=== PATIENT | female | born 1975 ===

== ENCOUNTER → 2018-05-07 | Outpatient (CLI) | payer OTHER ==
--- NOTE | 2018-05-07 11:44 | Diagnostic Imaging Report ---
INDICATION: Approximately 2 month history of generalized pelvic pain. TECHNIQUE: Multiple real time perry scale sonographic images were obtained of the pelvis transabdominally and transvaginally. CORRELATION STUDY: None FINDINGS: UTERUS/ENDOMETRIUM: Uterus measures 9.3 x 8.4 x 5.3 cm. Endometrial thickness is 11 mm. Area of heterogeneity likely reflective of a subserosal fibroid along the right aspect the uterus 4.4 x 3.7 x 4.0 cm. RIGHT OVARY: 2.2 x 2.4 x 2.0 cm, appearing unremarkable. Vascular flow is demonstrated to the right ovary. LEFT OVARY: Not visualized may be owing to position or obscuration by bowel. No significant free pelvic fluid. IMPRESSION: 1. Probable fibroid uterus. 2. Non-visualization of the left ovary, likely obscured by bowel gas. Dictated by: Dictated on workstation # [id number]
== END ==
LOC: RAD 10:00
PROVIDERS: ATTEND Nurse Practitioner Primary Care
DX: N85.2 Hypertrophy of uterus (principal)
CPT/HCPCS: 76830; 76856

== ENCOUNTER 2019-03-21 11:39 | Outpatient (CLI) | payer OTHER ==
[~2019-03-21] VITALS: Ht 154.9 cm; Wt 75.7 kg
[2019-03-21 11:53] VITALS: BP 139/83
[2019-03-21] MEDS ORDERED: PANT40TA3 PO (12:22)
[2019-03-21] MEDS ORDERED: GLIM2TAB PO (12:22)
[2019-03-21] MEDS ORDERED: ATOR40TA70 PO (12:22)
[2019-03-21 12:23] LABS: BASOPHILS % (AUTO) 0 % (0-10); EOSINOPHILS # (AUTO) 0.1 10^3/uL (0.0-0.3); EOSINOPHILS % (AUTO) 1 % (0-10); HEMATOCRIT 40 % (35-52); HEMOGLOBIN 13.2 G/DL (11.5-16.0); LYMPHOCYTES # (AUTO) 2.7 X 10^3 (1.0-4.0); LYMPHOCYTES % (AUTO) 32 % (12-44); MEAN CORPUSCULAR HEMOGLOBIN 28 PG (25-34); MEAN CORPUSCULAR HGB CONC 33 G/DL (32-36); MEAN CORPUSCULAR VOLUME 86 FL (80-99); MEAN PLATELET VOLUME 11.1 FL (7.4-10.4); MONOCYTES # (AUTO) 0.6 X 10^3 (0.0-1.0); MONOCYTES % (AUTO) 7 % (0-12); NEUTROPHILS # (AUTO) 5.1 X 10^3 (1.8-7.8); NEUTROPHILS % (AUTO) 60 % (42-75); PLATELET COUNT 293 10^3/uL (130-400); RED CELL DISTRIBUTION WIDTH 14.3 % (10.0-14.5); WHITE BLOOD COUNT 8.5 10^3/uL (4.3-11.0)
== END 2019-03-21 12:18 | disposition home or self-care (01) ==
LOC: PREOP 11:39
PROVIDERS: ATTEND Obstetrics & Gynecology
DX: Z01.812 Encounter for preprocedural laboratory examination (principal); Z11.2 Encounter for screening for other bacterial diseases; N94.6 Dysmenorrhea, unspecified; N92.1 Excessive and frequent menstruation with irregular cycle; R10.2 Pelvic and perineal pain; N85.2 Hypertrophy of uterus
CPT/HCPCS: 36415; 85025; 86850; 86900; 86901; 87081

== ENCOUNTER 2019-03-28 08:00 | Inpatient (IN) | payer OTHER ==
[~2019-03-28] VITALS: Ht 153.7 cm; Wt 79.4 kg
[~2019-03-28 08:00] MED LIST: ATOR40TA70 PO; GLIM2TAB PO; PANT40TA3 PO
[2019-04-04] VITALS (12 sets, daily range): BP systolic 93–142; BP diastolic 54–92
[2019-04-04] MEDS ORDERED: ceFAZolin 2 GM/50 ML NS 50 ML IV ONE (06:15)
[2019-04-04] MEDS ORDERED: CATHETER FLUSH 10 ML SYR IV PRN (06:30)
[2019-04-04] MEDS ORDERED: MIDAZOLAM 2 MG/2 ML (VERSED) VIAL ONE ×2 (06:50→06:57)
[2019-04-04] MEDS: LACTATED RINGERS 1,000 ML IV PRN ×4 (06:55→09:00)
--- NOTE | 2019-04-04 06:55 | NUR ---
2 mg versed given to patient by Anesthesia Lilo.
[2019-04-04] MEDS ORDERED: ROCURONIUM 10 MG/ML 5 ML SYRINGE IV ONE ×2 (06:56→08:31)
[2019-04-04] MEDS ORDERED: DEXAMETHASONE 10 MG/ML (DECADRON) 1 ML VIAL ONE (06:56)
[2019-04-04] MEDS ORDERED: SEVOFLURANE (ULTANE) 15 ML INHAL SOLN ONE ×3 (06:56→08:47)
[2019-04-04] MEDS ORDERED: proPOfol 200 MG/20 ML (DIPRIVAN) VIAL IV ONE (06:56)
[2019-04-04] MEDS ORDERED: ONDANSETRON 4 MG/2 ML (SDV) Z0FRAN ONE (06:56)
[2019-04-04] MEDS ORDERED: fentaNYL INJECTION 100 MCG/2 ML AMP ONE (06:57)
--- NOTE | 2019-04-04 07:21 | History & Physical-Surgical ---
HPO-Surgical History of Present Illness Chief Complaint: Heavy, painful bleeding which last for weeks. Also, had a pelvic ultrasound which demonstrated uterine fibroids. Diagnosis/Surgical Indication: Uterine Fibroid 2. Menometrorrhagia 3. Dysmenorrhea 4. Pelvic Pain Date of Surgery: Apr 04, 2019 Weight (Pounds): 175 Weight (Ounces): 0.0 Height (Feet): 5 Height (Inches): 0.50 Allergies and Home Medications Allergies Coded Allergies: ibuprofen (Verified Allergy, Unknown, Hives, 03/21/19) Home Medications Atorvastatin Calcium 40 Mg Tablet, 40 MG PO DAILY, (Reported) Glimepiride 2 Mg Tablet, 2 MG PO BID, (Reported) Pantoprazole Sodium 40 Mg Tablet.dr, 40 MG PO DAILY, (Reported) Patient Home Medication List Home Medication List Reviewed: Yes Past Nuolufo-Darllo-Pmhavu Hx Patient Social History Marrital Status: Alcohol Use: Denies Use Recreational Drug Use: No Physical Abuse Screen: No Sexual Abuse: No Recent Foreign Travel: No Contact w/other who traveled: No Recent Hopitalizations: No Recent Infectious Disease Expo: No Immunizations Up To Date Pediatric: No Seasonal Allergies Seasonal Allergies: No Surgeries Yes (c/s x3, tubal with last c/s) Respiratory No Currently Using CPAP: No Cardiovascular No Neurological No Reproductive System : No Female Reproductive Disorders: Menstrual Problems Genitourinary No Gastrointestinal Yes Gastroesophageal Reflux Musculoskeletal No Endocrine History of Endocrine Disorders: Yes HEENT History of HEENT Disorders: No Cancer No Psychosocial History of Psychiatric Problem: No Integumentary History of Skin or Integumenta: No Blood Transfusions History of Blood Disorders: Yes (anemia) Family Medical History Family Hx: Diabetes mellitus 19 FATHER G8 SISTER Hypertension 19 MOTHER Exam Vital Signs Vital Signs Capillary Refill : Labs Laboratory Tests Test 04/04/19 06:28 Range/Units Glucometer 165 H 70-110 MG/DL General Appearance: Alert, Oriented X3, Cooperative HEENT: PERRLA, EOMI Respiratory: Clear to Auscultation, Normal Air Movement Cardiovascular: Regular Rate, No Murmurs Abdominal: Normal Bowel Sounds, Soft, No Tenderness Extremities: No Clubbing, No Cyanosis, No Edema Skin: No Rashes Neuro: Normal Gait, Normal Speech, Cranial Nerves 3-12 NL Psych/Mental Status: Mental Status NL Assessment/Plan Assessment and Plan Assessment: Uterine Fibroid 2. Menometrorrhagia 3. Dysmenorrhea 4. Pelvic Pain Plan: Ms. Meyers is scheduled for a Total Abdominal Hysterectomy with Bilateral Salpingo-oophorectomy today. The procedure and its associated risks were explained. All questions were answered through an community music therapist. Admission Diagnosis Uterine Fibroid 2. Menometrorrhagia 3. Dysmenorrhea 4. Pelvic Pain Admission Status: Inpatient Order (span 2 midnights) Reason for Inpatient Admission: Scheduled surgery, Total Abdominal Hysterectomy with Bilateral Salpingo-oophorectomy BOB ROCA DO Apr 04, 2019 07:21
[2019-04-04] MEDS ORDERED: HYDROmorphone 2 MG/ML VIAL (DILAUDID) ONE (07:29)
[2019-04-04] MEDS ORDERED: ROPIVACAINE 5MG/ML 30ML VIAL ONE (07:39)
[2019-04-04] MEDS ORDERED: NEOSTIGMINE 1 MG/ML 5 ML SYRINGE ONE (07:55)
[2019-04-04] MEDS ORDERED: GLYCOPYRROLATE 0.2 MG/ML (ROBINUL) 2 ML VIAL ONE (07:55)
[2019-04-04] MEDS ORDERED: ONDANSETRON 4 MG/2 ML (SDV) Z0FRAN IVP PRN (09:15)
[2019-04-04] MEDS ORDERED: fentaNYL INJECTION 100 MCG/2 ML AMP IVP PRN (09:15)
--- NOTE | 2019-04-04 09:41 | Operative Report ---
Operative Report Date of Procedure/Surgery Apr 04, 2019 Surgeon (s) BOB ROCA DO Corn Picker (s): None Post-Operative Diagnosis Uterine Fibroid 2. Menometrorrhagia 3. Dysmenorrhea 4. Pelvic Pain Procedure Performed Supracervical Abdominal Hysterectomy with Bilateral Salpingo-oophorectomy with Adesiolysis Description of Procedure Anesthesia Type: General Estimated blood loss (mL): 200 ml Specimen(s) collected/removed Uterine Fibroids, Uterus (no cervix), Fallopian Tubes, Ovaries, Previous Skin Scar Description of the Procedure Ms. Meyers was taken to the Operating Room with IV fluids running. Once in the OR, general anesthesia was administered without complications She was placed in the supine position, prepped and draped in the normal sterile fashion. An elliptical incision was made over her previous incision, with the old scar being removed and sent to pathology. The incision was then carried down to the underlying layer of the fascia. The fascia was nicked in the midline, then extended laterally. The fascia was elevated with the rectus muscle dissected off sharply and bluntly (very difficult, secondary to thick, fibrous tissue). The rectus muscle was in the midline. The peritoneum was identified and entered sharply with the incision extended superiorly and inferiorly with good visualization of the bladder. Secondary to dense adhesion, I was unable to place the 0'Gary-O'Segura self retaining retractor. Consequently, I freed up the uterus and removed a very large uterine fibroid from the right side of the uterus. Uterus was freed from multiple thick adhesions. The round ligament, bilaterally, was doubly clamped and cut, then suture ligated with 0- Vicryl. The vesicouterine peritoneum demonstrated dense adhesions, but was dissected off the lower uterine segment. At this point, the infundibulopelvic ligament, bilaterally, was doubly clamped and transected. It was suture ligated with 0-Vicryl, with a 0-Vicryl free time placed below the initial sutures. The broad ligament along with the uterine vessels were serially clamped, cut, and suture ligated. Secondary to poor visualization, once I reached the neck of the cervix, I amputated the uterus from the cervical neck. The cervical stump was sutured with 0-Vicryl in a running locked fashion, followed by an imbrication layer. Hemostasis was noted throughout the pelvic cavity. Moderate amount of irrigation was undertaken. All instruments were removed from the pelvic cavity. The parietal peritoneum was closed wit 3-0 Vicryl. The fascia was approximated with 0-Vicryl in a running fashion. The subcutaneous tissues were approximated with 3-0 Plain Gut. The skin was closed with 4-0 Vicryl in a subcuticular manner. Sponge, instruments, and needle counts were correct x 3. Ms. Meyers was taken to the recovery room in good and stable condition. Findings of the Procedure Multiple deep adhesions. Supracervical hysterectomy was performed secondary to poor visualization in a deep pelvic cavity Allergies and Home Medications Allergies Coded Allergies: ibuprofen (Verified Allergy, Unknown, Hives, 03/21/19) Home Medications Atorvastatin Calcium 40 Mg Tablet, 40 MG PO DAILY, (Reported) Glimepiride 2 Mg Tablet, 2 MG PO BID, (Reported) Pantoprazole Sodium 40 Mg Tablet.dr, 40 MG PO DAILY, (Reported) Patient Home Medication List Home Medication List Reviewed: Yes BOB ROCA DO Apr 04, 2019 09:41
--- NOTE | 2019-04-04 10:30 | NUR ---
OSBALDO TSANG presented to unit via BED from RECOVERY, accompanied by Olamide ABARCA TECHNOLOGY LEAD AFTER HAVING SURGERY. REPORT RECEIVED.
[2019-04-04] MEDS ORDERED: LORazepam INJ 2 MG/ML (ATIVAN) VIAL IVP ONE (12:00)
[2019-04-04] MEDS: ACETAMINOPHEN 500 MG TAB (TYLENOL) PO SCH ×3 (12:03→20:14)
[2019-04-04] MEDS: METOCLOPRAMIDE 10 MG (REGLAN) TAB PO SCH ×2 (12:03→18:32)
--- NOTE | 2019-04-04 12:10 | NUR ---
MEDS GIVEN; SEE EMAR FOR FURTHER. VS OBTAINED.
--- NOTE | 2019-04-04 13:10 | NUR ---
DR. GIBBSS TO PT'S BEDSIDE, VOICES TO THIS RN THAT PT IS SLEEPING, RATING HER PAIN A 10/10.
--- NOTE | 2019-04-04 15:24 | NUR ---
PT RESTING, REMAINS RATING PAIN 10/10. FAMILY AT THE BEDSIDE. NO NEEDS VOICED. CLEAR LIQUID TRAY ORDERED PER THIS RN.
[2019-04-04] MEDS: NS IV 1000 ML 1,000 ML IV SCH (16:23)
--- NOTE | 2019-04-04 16:25 | NUR ---
MEDS GIVEN; SEE EMAR FOR FURTHER. VS OBTAINED. DAUGHTER AT THE BEDSIDE. HUYNH TUBING MANUALLY DRAINED. PT RESTING.
--- NOTE | 2019-04-04 17:22 | NUR ---
DAUGHTER OUT IN THE HALLWAY, VOICES THAT PT IS SLEEPING.
--- NOTE | 2019-04-04 18:35 | NUR ---
THIS RN TO BEDSIDE. MED GIVEN PO; SEE EMAR FOR FURTHER. HUYNH EMPTIED. PT RATES PAIN 05/28. NO FURTHER NEEDS VOICED. DAUGHTER REMAINS AT THE BEDSIDE.
--- NOTE | 2019-04-04 20:48 | NUR ---
Assessment completed. family is at bedside. pt c/o gas pains. hot tea given. pt denies any other needs at this time. will continue to monitor.
[2019-04-05] MEDS: NS IV 1000 ML 1,000 ML IV SCH ×2 (00:29→08:23)
[2019-04-05] MEDS: ACETAMINOPHEN 500 MG TAB (TYLENOL) PO SCH ×4 (00:29→14:45)
[2019-04-05] MEDS: METOCLOPRAMIDE 10 MG (REGLAN) TAB PO SCH ×2 (00:30→05:18)
[2019-04-05 01:00] VITALS: BP 105/63
[2019-04-05 05:00] VITALS: BP 105/66
[2019-04-05] MEDS ORDERED: BISACODYL 10 MG SUPP (DULCOLAX) PR NR (05:00)
[2019-04-05] MEDS ORDERED: MILK OF MAGNESIA 400 MG/5 ML 30 ML UDC PO ONE (05:00)
[2019-04-05] MEDS ORDERED: OXC5T PO (06:47)
[2019-04-05] MEDS ORDERED: ACET-77 PO (06:47)
[2019-04-05] MEDS ORDERED: DOCU100C37 PO (06:47)
--- NOTE | 2019-04-05 06:55 | Discharge Summary ---
Diagnosis/Chief Complaint Date of Admission Apr 04, 2019 at 06:06 Date of Discharge April 05, 2019 Discharge Date: Apr 05, 2019 Discharge Time: 07:50 Admission Diagnosis Admission Diagnosis Uterine Fibroids 2. Menometrorrhagia 3. Dysmenorrhea 4. Pelvic Pain Discharge Diagnosis Uterine Fibroids 2. Menometrorrhagia 3. Dysmenorrhea 4. Pelvic Pain 5. A dhesive Disease Reason Hospital Visit Scheduled surgery, Supracervical Abdominal Hysterectomy with Bilateral Salpingo- oophorectomy Discharge Summary Hospital Course Was the Problem List Reviewed?: Yes Hospital Course Ms. Meyers was admitted for scheduled surgery, Supracervical Abdominal Hysterectomy with Bilateral Salpingo-oophorectomy. The surgery was performed without complications. On her day of surgery she was started on IV pain medications and other comfort measures Her day of surgery course was unremarkable. Postoperative Day #1, she was given medications to increase her bowel function. Once her bowels moved, she was advance to a Regular Diet. She was controlling her pain with oral pain medications, voiding freely, and ambulating. Her vital signs remained stable throughout her hospitalization. She will be discharged with instructions, prescriptions, and a follow up appointment. Labs Laboratory Tests 04/04/19 06:28: Glucometer 165H Procedures None. Discharge Physical Examination Allergies: Coded Allergies: ibuprofen (Verified Allergy, Unknown, Hives, 03/21/19) Vitals & I&Os Vital Signs Date Time Temp Pulse Resp B/P (MAP) Pulse Ox O2 Delivery O2 Flow Rate FiO2 04/05/19 05:00 98.7 89 18 105/66 (79) 94 Room Air 04/04/19 10:04 3 General Appearance: Alert, Oriented X3, Cooperative, No Acute Distress HEENT: Atraumatic, PERRLA Respiratory: Clear to Auscultation, Normal Air Movement Cardiovascular: Regular Rate, No Murmurs Abdominal: Normal Bowel Sounds, Other (Mildly tender, incision is clean, dry and intact--no signs of infection or dehiscence) Extremities: No Clubbing, No Cyanosis Skin: No Rashes Neuro: Normal Gait, Normal Speech, Cranial Nerves 3-12 NL Discharge Home Medications Reviewed and agree with Discharge Medication list on patient's Discharge Instruction sheet Instructions to Patient/Family Please see electronic discharge instructions given to patient. Clinical Quality Measures DVT/VTE Risk/Contraindication: Risk Factor Score Per Nursin RFS Level Per Nursing on Admit: 3=High BOB ROCA DO Apr 05, 2019 06:55
[2019-04-05 08:18] VITALS: BP 105/66
--- NOTE | 2019-04-05 08:18 | NUR ---
initial shift assessment completed, see interventions for further. abd incision BAKARI with Dermabond intact. pt denies c/o's @ time. POC reviewed with pt and daughter, states understanding.
--- NOTE | 2019-04-05 08:36 | Anesthesia-General Post-Op ---
General Patient Condition Mental Status/LOC: Same as Preop Cardiovascular: Satisfactory Nausea/Vomiting: Absent Respiratory: Satisfactory Pain: Controlled Complications: Absent Post Op Complications Complications None Follow Up Care/Instructions Patient Instructions None needed. Anesthesia/Patient Condition Patient Condition Patient is doing well, no complaints, stable vital signs, no apparent adverse anesthesia problems. No complications reported per nursing. ELIDIA BONILLA CRNA Apr 05, 2019 08:35
[2019-04-05] MEDS ORDERED: DOCUSATE SODIUM 100 MG (COLACE) CAP PO SCH (09:00)
--- NOTE | 2019-04-05 10:05 | NUR ---
assisted up to BR.
--- NOTE | 2019-04-05 10:20 | NUR ---
assisted to chair @ bedside. voided 500cc urine without difficulty.
[2019-04-05] MEDS ORDERED: MILK OF MAGNESIA 400 MG/5 ML 30 ML UDC ONE (10:21)
--- NOTE | 2019-04-05 11:00 | NUR ---
reports +BM. diet advanced to regular per Dr's orders.
[2019-04-05 14:41] VITALS: BP 108/72
--- NOTE | 2019-04-05 14:47 | NUR ---
dismissal instructions given, verbalizes understanding. reviewed follow up appointment and dismissal Rx's. signature page signed, placed on chart.
--- NOTE | 2019-04-05 15:10 | NUR ---
pt dismissed to private vehicle via w/c with this RN and daughter @ side. pt stable with no sx's of distres snoted.
== END 2019-04-05 15:10 | disposition home or self-care (01) | DRG 743 ==
LOC: 4TH 04-04 06:06 → SURG 04-04 06:07 → WS 04-04 10:30
PROVIDERS: ADMIT Obstetrics & Gynecology; ATTEND Obstetrics & Gynecology
PROC: 0UT70ZZ Resection of Bilateral Fallopian Tubes, Open Approach (ICD-10-PCS; 2019-04-04)
PROC: 0UT90ZZ Resection of Uterus, Open Approach (ICD-10-PCS; 2019-04-04)
PROC: 0UN90ZZ Release Uterus, Open Approach (ICD-10-PCS; 2019-04-04)
PROC: 0HB7XZZ Excision of Abdomen Skin, External Approach (ICD-10-PCS; 2019-04-04)
PROC: 0UT20ZZ Resection of Bilateral Ovaries, Open Approach (ICD-10-PCS; principal; 2019-04-04 07:40)
DX: D25.9 Leiomyoma of uterus, unspecified (principal); L90.5 Scar conditions and fibrosis of skin; K21.9 Gastro-esophageal reflux disease without esophagitis
CPT/HCPCS: 82962; 84703; 86850; 86900; 86901; 94664